=== PATIENT | female | born 1975 | race Caucasian/White ===

== ENCOUNTER → 2017-04-29 | Outpatient (CLI) | payer OTHER, BC ==
[2017-05-01 12:59] LABS: HPV Genotype 16 Not Detected (NOTDET); HPV Genotype 18 Not Detected (NOTDET)
[2017-05-05 12:50] LABS: HPV High Risk Other Not Detected (NOTDET)
== END ==
LOC: OLS 12:38
PROVIDERS: Obstetrics & Gynecology Gynecology
DX: Z12.4 Encounter for screening for malignant neoplasm of cervix (principal)
CPT/HCPCS: 87624; G0123

== ENCOUNTER → 2018-05-05 | Outpatient (CLI) | payer BC ==
[2018-05-07 14:07] LABS: HPV 16 Negative (Negative); HPV 18 Negative (Negative); HPV OTHER HR TYPES Negative (Negative)
== END | disposition home or self-care (01) ==
LOC: LAB SHORT 17:50 → LAB 17:50
PROVIDERS: Obstetrics & Gynecology Gynecology
DX: Z12.4 Encounter for screening for malignant neoplasm of cervix (principal)
CPT/HCPCS: 87624; G0123

== ENCOUNTER 2020-02-25 06:19 | Day surgery (SDC) | payer BC ==
[~2020-02-25] VITALS: Ht 172.7 cm; Wt 71.3 kg
[~2020-02-25 06:19] MED LIST: BACL10; GABA300 PO
--- NOTE | 2020-02-25 09:18 | NUR ---
02/25/20 0918 Jerad Gomez A DEFICIT OF 51. WONDERLY AWARE.
== END 2020-02-25 09:50 | disposition home or self-care (01) ==
LOC: ORSCSDS 06:19
DX: N92.0 Excessive and frequent menstruation with regular cycle (principal); Z79.899 Other long term (current) drug therapy
CPT/HCPCS: 84703; 88305; J0690; J1100; J1885; J2250; J2405; J2704; J3010; J7120

== ENCOUNTER → 2020-07-03 | Outpatient (CLI) | payer BC | LOC: LAB EV 18:36 → LAB SHORT 18:36 | DX: N39.0 Urinary tract infection, site not specified (principal); Z88.2 Allergy status to sulfonamides | CPT/HCPCS: 87086 ==

== ENCOUNTER 2023-04-01 15:43 | Emergency (ER) | payer OTHER, BC ==
[~2023-04-01] VITALS: Ht 172.7 cm; Wt 72.6 kg
[2023-04-01 15:53] VITALS: BP 126/87
[2023-04-01] MEDS ORDERED: CLIMARA1 EACH (16:04)
[2023-04-01] MEDS ORDERED: PROG100 PO (16:05)
[2023-04-01] MEDS ORDERED: HYDR1TAB94 PO (16:05)
== END 2023-04-01 16:43 | disposition home or self-care (01) ==
LOC: ER 15:43
DX: M79.662 Pain in left lower leg (principal); Z98.890 Other specified postprocedural states; Z88.2 Allergy status to sulfonamides; Z79.899 Other long term (current) drug therapy
CPT/HCPCS: 93971; 99283-25

== ENCOUNTER 2023-09-30 06:55 | Day surgery (SDC) | payer OTHER, BC ==
[~2023-09-30] VITALS: Ht 170.2 cm; Wt 74.9 kg
[~2023-09-30 06:55] MED LIST changes: +CLIMARA1 EACH; +HYDR1TAB94 PO; +Lactated Ringer's 1,000 ML IV SCH; +PROG100 PO
[2023-09-30 07:53] VITALS: BP 110/80
[2023-09-30] MEDS ORDERED: propofoL 20 ML IV ONE (08:09)
--- NOTE | 2023-09-30 08:15 | NUR ---
History, Chart, Medications and Allergies reviewed before start of procedure. Patient up to Ambulate independently. Gait steady. Pre-Op teaching done. Pt verbalizes understanding. Patient confirms NPO status and agrees with scheduled surgery. Patient states colon prep results light yellow without sediment. Lungs clear T/O to Auscultation. Patient States Post-Procedure ride home has been arranged.
--- NOTE | 2023-09-30 08:19 | NUR ---
09/30/23 0819 Susie Juárez HISTORY, CHART, MEDICATIONS AND ALLERGIES REVIEWED BEFORE START OF PROCEDURE. PATIENT CONFIRMS NPO STATUS AND AGREES WITH SCHEDULED PROCEDURE. 3-LEAD EKG REVIEWED WITH PHYSICIAN PRIOR TO START OF PROCEDURE. MONITOR INTACT WITH CONTINUOUS PULSE OXIMETRY,CAPNOGRAPHY, 3-LEAD EKG, INTERMITTENT BP. SUPPLEMENTAL O2 TO BE TITRATED THROUGHOUT PROCEDURE TO MAINTAIN O2 SATURATION ABOVE 90%. PATIENT DETERMINED TO BE ASA APPROPRIATE FOR PROPOFOL SEDATION PRIOR TO START OF PROCEDURE BY .
[2023-09-30 08:20] VITALS: BP 116/65
[2023-09-30] MEDS ORDERED: Midazolam HCl 1MG / ML 2ML Vial ONE (08:27)
[2023-09-30 08:32] VITALS: BP 109/77
[2023-09-30 08:34] VITALS: BP 106/73
[2023-09-30 08:35] VITALS: BP 117/73
--- NOTE | 2023-09-30 08:39 | NUR ---
REPORT RECEIVED FROM NICOLE GUERRERO. VSS. PT ON RA. PT A&OX4. PT ABLE TO REPOSITION SELF IN BED. PT REQUESTING PO FLUIDS AND TOLERATING THEM WELL. PT DENIES PAIN, NAUSEA OR OTHER DISCOMFORTS.
[2023-09-30 08:45] VITALS: BP 114/76
--- NOTE | 2023-09-30 08:57 | NUR ---
0850 Patient up to Ambulate independently. Gait steady. VSS AND CONSISTENT WITH PT BASELINE. PT HAS NO COMPLAINTS AND VERBALIZES READINESS TO GO HOME. Discharge instructions reviewed with patient. Patient verbalizes understanding. Copy given to patient to take home. Discharged via wheelchair to private car for ride home. PT BELONGINGS RETURNED TO PT.
== END 2023-09-30 09:00 | disposition home or self-care (01) ==
LOC: ORSCMMR 06:55 → ORD 08:00 → ORSCMMR 08:00
PROVIDERS: Internal Medicine Gastroenterology
PROC: 0DJD8ZZ Inspection of Lower Intestinal Tract, Via Natural or Artificial Opening Endoscopic (ICD-10-PCS; principal; 2023-09-30 08:00)
DX: Z12.11 Encounter for screening for malignant neoplasm of colon (principal); N93.8 Other specified abnormal uterine and vaginal bleeding; Z79.899 Other long term (current) drug therapy
CPT/HCPCS: J2250; J2704; J7120